=== PATIENT | male | born 1965 | race Caucasian/White ===

== ENCOUNTER 2024-04-20 14:47 | Inpatient (IN) | payer MEDICAID ==
[~2024-04-20] VITALS: Ht 182.9 cm; Wt 98.9 kg
[2024-04-20 14:52] VITALS: BP_SYST 79; PULSE 130; RESP 22; TEMP 103; O2SAT 92
[2024-04-20] MEDS: NS 1000 ML IV.SOLN IV ONE (15:13)
[2024-04-20] MEDS: PIPERACILLIN/TAZO 3.375 GM in D5W 50 ML IV ONE (15:16)
[2024-04-20 15:19] LABS: BILIRUBIN,URINE NEGATIVE (NEGATIVE); BLOOD, URINE 3+ (NEGATIVE); CLARITY/URINE CLOUDY (CLEAR); COLOR,URINE YELLOW (YELLOW); GLUCOSE,URINE NEGATIVE (NEGATIVE); KETONES,URINE NEGATIVE (NEGATIVE); NITRITE, URINE POSITIVE (NEGATIVE); PH,URINE 8.5 (5.0-8.0); PROTEIN URINE 2+ (NEGATIVE)
[2024-04-20] MEDS: ACETAMINOPHEN 500 MG TABLET PO ONE (15:19)
[2024-04-20] MEDS ORDERED: PIPERACILLIN/TAZOBACTAM 3.375 GM/VIAL (ZOSYN) IV ONE (15:21)
[2024-04-20 15:33] LABS: BASOPHILS # (AUTO) 0.1 K/uL (0.0-0.2); BASOPHILS % (AUTO) 0.8 % (0.0-2.0); HEMATOCRIT 35.5 % (36-54); HEMOGLOBIN 12.1 g/dL (14.0-18.0); LYMPHOCYTES # (AUTO) 0.3 K/uL (1.0-5.5); LYMPHOCYTES % (AUTO) 2.9 % (20.5-51.5); MEAN CORPUSCULAR HEMOGLOBIN 31 pg (27-31); MEAN CORPUSCULAR HGB CONC 34 % (32-36); MEAN CORPUSCULAR VOLUME 90 fL (79.0-98.0); MONOCYTES % (AUTO) 0.2 % (1.7-9.3); NEUTROPHILS # (AUTO) 10.8 K/uL (1.8-7.7); NEUTROPHILS % (AUTO) 96.1 % (40.0-70.0); PLATELET COUNT (AUTO) 220 K/uL (130-430); RED BLOOD CELL COUNT(AUTO) 3.96 MIL/uL (4.2-6.2); RED CELL DISTRIBUTION WIDTH 14.1 % (9.0-15.0); WHITE BLOOD COUNT (AUTO) 11.2 K/uL (4.8-10.8)
[2024-04-20 15:34] LABS: BACTERIA,URINE MANY /HPF (None Seen); LEUKOCYTE ESTERASE ,URINE 3+ (NEGATIVE); MUCUS,URINE None Seen /LPF (None Seen); RBC,URINE 0-3 /HPF (0-3); WBC,URINE >100 /HPF (0-3)
[2024-04-20 15:38] LABS: INR 1.6 (0.80-1.20); PROTHROMBIN TIME 16.6 SECS (9.5-12.5)
[2024-04-20 15:43] LABS: INFLUENZA TYPE A Negative (NEGATIVE); INFLUENZA TYPE B NEGATIVE (NEGATIVE)
[2024-04-20 15:45] LABS: ALANINE AMINOTRANSFERASE 7 U/L (12-78); ALBUMIN 2.2 g/dL (3.4-4.8); ANION GAP 10 (5-15); ASPARTATE AMINOTRANSFERASE 17 U/L (10-37); BILIRUBIN,DIRECT 0.4 mg/dL (0.0-0.3); CALCIUM 8.1 mg/dL (8.4-11.0); CARBON DIOXIDE 22 mmol/L (23-29); CHLORIDE 101 mmol/L (98-107); CREATININE 0.69 mg/dL (0.55-1.30); GFR AFRICAN AMERICAN 150 mL/min (>90); GFR NON AFRICAN-AMERICAN 124 mL/min (>90); GLUCOSE 105 mg/dL (74-106); POTASSIUM 3.7 mmol/L (3.5-5.1); SODIUM SERUM 133 mmol/L (136-145); TOTAL BILIRUBIN 0.7 mg/dL (0.0-1.0); TOTAL PROTEIN, SERUM 7.4 g/dL (6.4-8.3); UREA NITROGEN, BLOOD 12 mg/dL (8-21)
[2024-04-20] MEDS: NOREPINEPHRINE BITARTRATE 4 MG in NS 246 ML IV ONE (17:36)
[2024-04-20] MEDS ORDERED: ALBUTEROL SULFATE 0.083% 2.5 MG/3 ML VIAL.NEB INH PRN (17:45)
[2024-04-20] MEDS ORDERED: DOCUSATE SODIUM 100 MG CAPSULE PO PRN (18:00)
[2024-04-20] MEDS ORDERED: ONDANSETRON HCL 4 MG/2 ML VIAL IVP PRN (18:00)
[2024-04-20] MEDS ORDERED: MUPIROCIN 2% TOPICAL OINTMENT 22 GM NS PRN (18:00)
[2024-04-20] MEDS ORDERED: MORPHINE 2 MG/ML INJ. SYRINGE IVP PRN ×2 (18:00)
[2024-04-20] MEDS ORDERED: LORazepam 2 MG/ML VIAL IVP PRN (18:00)
[2024-04-20] MEDS: ACETAMINOPHEN 325 MG TABLET PO PRN (20:38)
[2024-04-20] MEDS: HEPARIN SODIUM,PORCINE 5,000 UNITS/ML VIAL SUBCUT SCH (20:38)
[2024-04-20] MEDS ORDERED: NOREPINEPHRINE 4 MG/4 ML VIAL IV ONE (21:44)
[2024-04-20] MEDS: NACL 0.9% 1,000 ML IV ONE (22:00)
[2024-04-20 22:22] VITALS: BP_SYST 152; PULSE 90; O2SAT 95
[2024-04-21] VITALS (11 sets, daily range): BP systolic 90–160; PULSE 59–79; RESP 16–18; TEMP 97.8; O2SAT 96–97
[2024-04-21] MEDS: NOREPINEPHRINE BITARTRATE 4 MG in NS 246 ML IV PRN (01:08)
[2024-04-21] MEDS ORDERED: PIPERACILLIN/TAZOBACTAM 3.375 GM/VIAL (ZOSYN) IV ONE ×3 (01:16→18:26)
[2024-04-21] MEDS: PIPERACILLIN/TAZO 3.375/DEX-IS 50 ML IV SCH ×2 (01:17→12:34)
[2024-04-21] MEDS ORDERED: NOREPINEPHRINE 4 MG/4 ML VIAL IV ONE ×2 (03:47→19:50)
[2024-04-21 05:44] LABS: HEMATOCRIT 36.2 % (36-54); MEAN CORPUSCULAR HEMOGLOBIN 30 pg (27-31); MEAN CORPUSCULAR HGB CONC 33 % (32-36); MEAN CORPUSCULAR VOLUME 89 fL (79.0-98.0); PLATELET COUNT (AUTO) 229 K/uL (130-430); RED BLOOD CELL COUNT(AUTO) 4.06 MIL/uL (4.2-6.2); RED CELL DISTRIBUTION WIDTH 13.9 % (9.0-15.0)
[2024-04-21 06:05] LABS: CALCIUM 8.2 mg/dL (8.4-11.0); CREATININE 0.58 mg/dL (0.55-1.30); POTASSIUM 3.1 mmol/L (3.5-5.1)
[2024-04-21 08:24] LABS: WHITE BLOOD COUNT (AUTO) 25.1 K/uL (4.8-10.8)
[2024-04-21] MEDS: MAGNESIUM SULFATE 50 ML IV PRN (09:33)
[2024-04-21] MEDS: POTASSIUM CHLORIDE 20 MEQ TABLET.ER PO PRN (09:33)
[2024-04-21 10:33] LABS: ATYPICAL LYMPHOCYTES % 0 % (0-0); BAND % (MANUAL) 14 % (0-6); BASOPHILS % (MANUAL) 0 % (0-2); EOSINOPHILS % (MANUAL) 0 % (0-7); LYMPHOCYTES % (MANUAL) 3 % (20-46); MONOCYTES % (MANUAL) 5 % (0-11); PLATELET ESTIMATE ADEQUATE (ADEQUATE); WBC MORPHOLOGY TOXIC VACUOLATION
[2024-04-21 10:34] LABS: ANISOCYTOSIS 1+
[2024-04-21] MEDS: ALBUMIN HUMAN 25% 200 ML IV ONE (13:38)
[2024-04-21] MEDS: NACL 0.9% 1,000 ML IV SCH (13:38)
[2024-04-22] VITALS (28 sets, daily range): BP systolic 89–128; PULSE 60–76; RESP 11–48; TEMP 97.6–98.6; O2SAT 95–99
[2024-04-22 06:35] LABS: CALCIUM 7.3 mg/dL (8.4-11.0); CREATININE 0.42 mg/dL (0.55-1.30)
[2024-04-22 06:41] LABS: BASOPHILS % (AUTO) 0.4 % (0.0-2.0); EOSINOPHILS # (AUTO) 0.2 K/uL (0.0-0.4); EOSINOPHILS % (AUTO) 1.6 % (0.0-4.0); HEMATOCRIT 30.2 % (36-54); HEMOGLOBIN 10.1 g/dL (14.0-18.0); LYMPHOCYTES # (AUTO) 1.2 K/uL (1.0-5.5); LYMPHOCYTES % (AUTO) 11.5 % (20.5-51.5); MEAN CORPUSCULAR HEMOGLOBIN 30 pg (27-31); MEAN CORPUSCULAR HGB CONC 33 % (32-36); MEAN CORPUSCULAR VOLUME 90 fL (79.0-98.0); MONOCYTES # (AUTO) 0.6 K/uL (0.0-1.0); MONOCYTES % (AUTO) 5.8 % (1.7-9.3); NEUTROPHILS # (AUTO) 8.4 K/uL (1.8-7.7); NEUTROPHILS % (AUTO) 80.7 % (40.0-70.0); PLATELET COUNT (AUTO) 150 K/uL (130-430); RED BLOOD CELL COUNT(AUTO) 3.37 MIL/uL (4.2-6.2); WHITE BLOOD COUNT (AUTO) 10.4 K/uL (4.8-10.8)
[2024-04-22] MEDS: KCL 20 mEq in 100 mL (PREMIX) 100 ML IV SCH (12:41)
[2024-04-22] MEDS: METHADONE HCL 10 MG TABLET PO SCH (16:36)
[2024-04-22] MEDS: MIDODRINE HCL 5 MG TABLET (PROAMATINE) PO SCH (16:37)
[2024-04-23] VITALS (19 sets, daily range): BP systolic 107–142; PULSE 60–82; RESP 12–27; TEMP 97.8–98.8; O2SAT 92–97
[2024-04-23] MEDS: KCL 20 mEq in 100 mL (PREMIX) 100 ML IV ONE (01:46)
[2024-04-23 05:56] LABS: BASOPHILS % (AUTO) 0.7 % (0.0-2.0); EOSINOPHILS # (AUTO) 0.2 K/uL (0.0-0.4); EOSINOPHILS % (AUTO) 3.1 % (0.0-4.0); HEMATOCRIT 33.7 % (36-54); HEMOGLOBIN 11.1 g/dL (14.0-18.0); LYMPHOCYTES # (AUTO) 1.4 K/uL (1.0-5.5); LYMPHOCYTES % (AUTO) 22.8 % (20.5-51.5); MEAN CORPUSCULAR HEMOGLOBIN 30 pg (27-31); MEAN CORPUSCULAR HGB CONC 33 % (32-36); MEAN CORPUSCULAR VOLUME 90 fL (79.0-98.0); MONOCYTES # (AUTO) 0.4 K/uL (0.0-1.0); MONOCYTES % (AUTO) 6.7 % (1.7-9.3); NEUTROPHILS # (AUTO) 4.1 K/uL (1.8-7.7); NEUTROPHILS % (AUTO) 66.7 % (40.0-70.0); PLATELET COUNT (AUTO) 147 K/uL (130-430); RED BLOOD CELL COUNT(AUTO) 3.75 MIL/uL (4.2-6.2); RED CELL DISTRIBUTION WIDTH 14.4 % (9.0-15.0); WHITE BLOOD COUNT (AUTO) 6.1 K/uL (4.8-10.8)
[2024-04-23 06:06] LABS: CREATININE 0.62 mg/dL (0.55-1.30); POTASSIUM 3.7 mmol/L (3.5-5.1)
[2024-04-23] MEDS: MEROPENEM 1 GM in NS 100 ML IV SCH (21:06)
[2024-04-24 00:51] VITALS: BP_SYST 116; PULSE 78; RESP 17; TEMP 96.6; O2SAT 95
[2024-04-24 06:26] LABS: BASOPHILS # (AUTO) 0.1 K/uL (0.0-0.2); EOSINOPHILS # (AUTO) 0.2 K/uL (0.0-0.4); EOSINOPHILS % (AUTO) 4.3 % (0.0-4.0); HEMATOCRIT 34.3 % (36-54); HEMOGLOBIN 11.2 g/dL (14.0-18.0); LYMPHOCYTES # (AUTO) 1.7 K/uL (1.0-5.5); LYMPHOCYTES % (AUTO) 33.6 % (20.5-51.5); MEAN CORPUSCULAR HEMOGLOBIN 30 pg (27-31); MEAN CORPUSCULAR HGB CONC 33 % (32-36); MEAN CORPUSCULAR VOLUME 91 fL (79.0-98.0); MONOCYTES # (AUTO) 0.4 K/uL (0.0-1.0); MONOCYTES % (AUTO) 7.4 % (1.7-9.3); NEUTROPHILS # (AUTO) 2.7 K/uL (1.8-7.7); NEUTROPHILS % (AUTO) 53.7 % (40.0-70.0); PLATELET COUNT (AUTO) 152 K/uL (130-430); RED BLOOD CELL COUNT(AUTO) 3.78 MIL/uL (4.2-6.2); WHITE BLOOD COUNT (AUTO) 5.1 K/uL (4.8-10.8)
[2024-04-24 08:00] VITALS: BP_SYST 132; PULSE 73; RESP 16; TEMP 97.6; O2SAT 97
[2024-04-24 08:17] LABS: CALCIUM 8.5 mg/dL (8.4-11.0); CREATININE 0.53 mg/dL (0.55-1.30)
[2024-04-24 11:07] VITALS: BP_SYST 126; PULSE 98; RESP 16; TEMP 97.4; O2SAT 100
[2024-04-24 15:13] VITALS: BP_SYST 126; PULSE 98; RESP 16; TEMP 97.4; O2SAT 100
[2024-04-24 15:17] VITALS: BP_SYST 114; PULSE 74; RESP 16; TEMP 98.1; O2SAT 96
== END 2024-04-24 16:00 | DRG 720 ==
LOC: SED 14:47 → SIC 17:45 → STU 04-23 16:51
PROVIDERS: ADMIT Family Medicine; ATTEND Family Medicine
PROC: 02HV33Z Insertion of Infusion Device into Superior Vena Cava, Percutaneous Approach (ICD-10-PCS; principal; 2024-04-20)
DX: A41.50 Gram-negative sepsis, unspecified (principal); R65.21 Severe sepsis with septic shock; E44.0 Moderate protein-calorie malnutrition; E87.6 Hypokalemia; N39.0 Urinary tract infection, site not specified; F19.90 Other psychoactive substance use, unspecified, uncomplicated; Z79.899 Other long term (current) drug therapy; Z88.8 Allergy status to other drugs, medicaments and biological substances; Z68.29 Body mass index [BMI] 29.0-29.9, adult
CPT/HCPCS: 36415; 71045; 80048; 80076; 81000; 81001; 81015; 83605; 83690; 83735; 84484; 85007; 85025; 85027; 85610; 85730; 87040; 87081; 87086; 87186; 93005; 94070; 99285; G0378; J1644; J2185; J2543; J3475; J3480; J7030; J7050; J7120